=== PATIENT | male | born 1955 | race Caucasian/White ===

== ENCOUNTER 2018-04-15 01:25 | Inpatient (IN) | payer OTHER ==
[~2018-04-15] VITALS: Ht 182.9 cm; Wt 99.8 kg
[~2018-04-15 01:25] MED LIST: BACLOFEN10 M1 PO; CYMBALTA60 M1 PO; DURAGESIC25 MCG TOP; FISH OIL CONC1000 MG PO; LEXAPRO 5MG5 MG PO; MOTRIN 400MG (400 MG PO; MULTIVITAMIN1 TAB PO; NEURONTIN800 M2 PO; NEXIUM40 M1 PO; OXYCODONE HCL30 M1 PO; OXYCODONE HYDRO10 M1 PO; OXYCODONE5 MG PO; OXYCONTIN30 M1 PO; PERCOCET 325 MG1 TA2 PO; PRED FORTE1 ML OD; VALIUM 10 MG. T10 MG PO; XANAX 0.25MG0.25 MG PO; XANAX0.25 M1 PO; Z PACK PO
[2018-04-15 11:10] LABS: PTT 28 SEC (25-37)
--- NOTE | 2018-04-15 12:00 | Operative Report ---
Operative/Inv Procedure Report Surgery Date: 04/15/18 Name of Procedure: Exposure prior instrumentation removal of prior fusion. L2-3 laminectomy for resection of bilateral synovial cysts. L2-3 TLIF. Insertion of L2-3 11 x 28 mm interbody titanium cage. L2-3 posterolateral arthrodesis utilizing autologous bone graft. L2-3 posterior lateral Pankaj titanium instrumentation. Stereotactic. Pre-Operative Diagnosis: Lumbar degenerative disc disease lumbar stenosis synovial cyst Post-Operative Diagnosis: Same Estimated Blood Loss: 750cc Surgeon/Tuberculosis Specialist: Domingo Fonseca MD and Dedra German MD Anesthesia: general endotracheal tube Monitors: Electrophysiological monitoring throughout the case Specimens: Synovial cyst Complications: None Condition: Recovery room Operative/Procedure Note Note: Patient was brought to the operating room and undergoing endotracheal intubation for catheterizations and a placed over both lower extremities. The patient was palpated placed prone on an OSI table back was kept flat all bony prominences well-padded. The procedure was performed under elective physiological monitoring with the technicians room throughout the case. The back was prepped with DuraPrep solution draped in usual sterile fashion. Incision was opened along the previous incision site in the midline and developed superiorly and additional 3 inches. Subcutaneous teeniest tissues were then released and the paraspinal muscles were mobilized out laterally to the level of the transverse processes of L2 and then the vision was identified. At this point the posterolateral fusion was found to be solid and thus the of the prior fusion could then be removed. It was accomplished by cutting the rods just superior to the L4 screws with a cutting bur. The rods were now removed and the polyaxial screws were backed out at L3 bilaterally. The lateral fusion mass was now identified and then prepped for future arthrodesis to L2. A bone scalpel was now utilized to remove bilateral pars osteotomies and laminectomy at L2 on the portion of L3. Synovial cyst was encountered on both sides and sent off for pathology. Furthermore complete foraminotomies were performed bilaterally and all soft tissues were cleared including the superior portion of the L3 lamina. After clearing the dura circumferentially as well as the nerve roots attention was now turned toward the interbody L2-3 disc. Disc space was entered with 11 blade and then removed combination of vertical rongeurs and straight and curved curettes. The cartilaginous endplates removed and the bony endplates were partially decorticated. Bone graft that was harvested from the patient's lamina was now morcellized and ready for the arthrodesis. The L2-3 space was packed with morcellized autologous bone graft and then the center of pain 11 x 28 mm titanium cage was centrally filled with autologous bone graft. Cage was tapped toward the midline at the L2-3 space and countersunk. The transverse processes of L2 and the lateral fusion mass of L3 4 5 were now posterior were decorticated and morcellized autologous bone graft was packed over the decorticated surfaces posterolaterally. V toss was used posterolaterally as well to be packed on top of the morcellized bone. The stereotactic coordinates were now obtained and under stereotactic guidance the pedicles at L2 and L3 were no accessed with Pankaj titanium instrumentation. 55 mm x 6.5 mm diameter screws were utilized at L2 and 45 x 7.5 mm diameter screws were utilized on the left at L3 and 50 x 7.5 mm diameter screws on the right at L3. Screws were now stimulated and found to stimulate all well above the threshold level threshold stimulation was 28 mA. The wound was copiously irrigated with a trace and irrigation throughout the case. A round drain was now placed and removed through separate stab incision and secured to the skin superiorly. The paraspinal muscles and fascia were reapproximated utilizing interrupted 0 Vicryls inverted 2-0 Vicryl subcutaneous tissues and mary for the skin. Patient was extubated and taken to recovery room having tolerated procedure well.
--- NOTE | 2018-04-15 12:04 | Operative Report ---
Operative/Inv Procedure Report Surgery Date: 04/15/18 Name of Procedure: 1. Exploration of prior L3-5 fusion 2. Removal of prior instrumentation 3. Bilateral L2 pars osteotomies 4. L2-3 TLIF with Monroe titanium interbody cage, autograft 5. Nonsegmental L2-3 posterior lateral arthrodesis with Pankaj Obrien pedicle screws and rods, autograft, V toss 6. O arm neuro navigation 7. Resection of bilateral L2-3 synovial cysts Pre-Operative Diagnosis: Progressive L2-3 retrolisthesis with moderately severe canal stenosis, severe bilateral foraminal stenosis status post L3-L5 arthrodesis Post-Operative Diagnosis: Same Estimated Blood Loss: scant (1200cc) Surgeon/Warp Dresser: Monserrat PORTER,Domingo Shu MD Anesthesia: general endotracheal tube Monitors: Neurophysiologic monitoring IV Fluids: 2 L crystalloid, 540 mL Cell Saver Implants: Monroe titanium interbody cage, Obrien pedicle screws and rods Urine Output: 300 mL via Mortensen Drains: Medium Hemovac Specimens: L2-3 disc material, bilateral L2-3 synovial cysts Complications: None Condition: Stable Operative Indication: Patient is a 62-year-old gentleman status post a prior work injury and L3 to L5 decompression with arthrodesis who presents with recurrent and progressive back pain with bilateral lower extremity radiculopathy. Imaging studies have identified a progressive L2-3 retrolisthesis and increasing spinal stenosis at the adjacent level above the previous arthrodesis. He is felt a competent course of conservative treatment and now presents for exploration of the prior fusion, extension of the decompression and instrumented fusion to the L2-3 segment. Operative/Procedure Note Note: Patient was taken the operating room. After appropriate patient identification and surgical timeout, patient underwent the smooth induction of general endotracheal anesthesia without incident. Once endotracheal tube was secured in position a Mortensen catheter was sterilely inserted. DVT prophylaxis was utilized throughout the case. Neurophysiologic monitoring leads were placed and baseline recordings were obtained. Patient was carefully turned to the prone position on the Anthony frame taking care to ensure that all pressure points were well- padded. He was given 1 g of IV Vanco on preoperative prophylaxis. The lumbar spine was strip shaved in widely prepped and draped usual sterile fashion using povidone iodine solution. The previous vertical midline skin incision was marked and infiltrated with local anesthetic and extended rostrally a several centimeters. Skin incision was made with a 10 blade knife. Dissection was carried down through subcutaneous tissue with the Bovie to the lumbodorsal fascia. The fascia was incised in midline and a subperiosteal dissection lumbar paravertebral muscles was performed bilaterally exposing the spinous processes lamina and facet joints. We exposed at the a previous fusion construct and instrumentation. We explored to the prior posterior lateral arthrodesis bilaterally which was noted to be a quite solid abundant bone graft fully consolidated on both sides. We removed the previous locking caps of the L3 screws. Using a metal cutting bur, another stuart was divided between at the prior L3 and L4 pedicle screws and the rostral piece of the stuart was removed off to the back table. The pedicle screws of L3 were then removed bilaterally and the sizes marked. Bilateral transverse processes of L2 and L3 were exposed bilaterally decorticated with a high-speed drill. The lateral gutters were then packed off with Ray-Rock's. The then focused our attention to the joint of L2-3. The facets were noted to be markedly hypertrophic on both sides. We defined the rostral limits of the prior decompression. I using the bone scalpel, a bilateral pars osteotomy of L2 were performed. The inferior articulating facets removed and then the facetectomies completed using combination of Leksell rongeur and Kerrison unsure skeletonizing the pedicles of L2 and L3 bilaterally. Fair amount of previous superficial and interlaminar scar was removed bilaterally. Bilateral synovial cysts were encountered off the L2-3 facet tumor carefully resected with Kerrison rongeurs and passed off as specimen. The omentum flava Mall was elevated and stripped throughout the decompression. Generous foraminotomies of the L2 and L3 roots were performed on both sides allowing an excellent decompression of both the thecal sac and the roots. We then focused our attention to the interbody arthrodesis of L2-3. Working from the left side of the disc space, thecal sac was gently mobilized to the midline exposing the underlying disc annulus. A cuff of overlying venous epidural tissue was coagulated and carefully divided. An annulotomy was made with an 11 blade knife and discectomy at L2-3 performed with disc space judd and rasps until all the disc material and cartilaginous endplates were removed. The endplates were further prepared with the disc curettes. Once the discectomy was completed, the disc space was irrigated. Morcellated autograft from the decompression was packed into the anterior aspect of the disc space. After appropriate trials an 11 x 18 8 x 6 lordotic Monroe trachea and cage was selected. This was filled with morcellated autograft and, with the neural elements protected, gently tamped into the L2-3 interspace and countersunk. Once the cage was in position, we packed morcellated autograft of bilaterally over the transverse processes from L2 to L3 bilaterally. This was further compressed with 2.5 mL of V toss on both sides. At this point, fair amount of general oozing was noted from all of the muscles, subcutaneous tissue, and from the epidural space. The bipolar was used on visualized up liters. FloSeal and thrombin soaked Gelfoam patties were used in the epidural space. Patient was given 11 g of TXA to help with the bleeding which we were able to get under good control. We Placed the O arm reference arc into the right iliac crest through separate stab incision. The O arm was then brought into play. Reference AP and lateral x-rays followed by spin of the O arm were acquired. Reconstructions were performed and verified. Using O arm navigation, we then placed pedicle screws at L2 bilaterally. Entry points were marked at the junction of the pars, transverse process and inferior aspect of the rostral facet. The pedicles were traversed with a gearshift, sounded with a ball-tipped probe, tapped, and screws placed. At L2, 6.5 x 55 mm screws were placed bilaterally. At L3, prior screws were 6.5 x 45 mm. We replaced a 7.5 x 45 mm screw on the left and a 7.5 x 50 mm screw on the right based off the Intra-Op CT. I'll once all screws were in position it was stimulated with thresholds greater than 30 mA at all 4 locations. With all the screws and instrumentation in position, the O arm was brought back into play and a second spin was obtained. We reviewed the reformats which confirmed excellent position of the interbody cage, reduction of the spondylolisthesis, excellent decompression of the neural elements, an excellent position of all of the pedicle screws. A 50 mm rods were then top loaded into the screws and locking caps placed. Gentle compression was placed across the interspace and the screws were finally tightened with an antitorque device. The wound was copiously irrigated with bacitracin sterile saline irrigation. A medium Hemovac was placed into the wound and brought out through separate stab incision and secured with a 2-0 nylon suture. 1 g of vancomycin powder was placed onto the all of the cut muscle and soft tissue surfaces. We then began wound closure. The deep muscle was reapproximated with interrupted 0 Vicryl suture. The lumbar dorsal fascia was reapproximated interrupted 0 Vicryl suture. Subcutaneous tissue was copiously irrigated and closed in layers with interrupted 2-0 Vicryl suture in subcutaneous tissue and mary in the skin. The was cleaned and dried. Bacitracin and a sterile occlusive dressing was placed. The patient was returned to the supine position, awakened, X made, and taken to PACU in stable condition. He was noted to be moving all 4 extremities at the completion of the case. All sponge, needle, and instrument counts are correct at the completion of procedure 3. Neurophysiologic monitoring was stable throughout the case. Discharge Disposition: PACU
--- NOTE | 2018-04-15 12:09 | RADIOLOGY REPORT ---
EXAMINATION: LUMBAR SPINE CLINICAL INFORMATION: L2-L3 removal of hardware fusion. COMPARISON: X-rays 11/01/2017. TECHNIQUE: Axial CT scans of the lumbar spine were obtained intraoperatively. FINDINGS: On the initial images, the study demonstrates sequelae of instrumented posterior decompression and fusion changes in the mid and lower lumbar spine. There are bilateral pedicular screws at L4 and L5 joined by vertical rods. The lower lumbar spine and upper sacrum not included on the initial images. There is an intervertebral disc device at L2-L3, not seen on the most recent prior images. Intervertebral disc devices are also noted at L3-L4 and L4-L5, demonstrated on prior imaging On the later images there are sequelae of instrumented fusions at L2 and L3; the intervertebral disc device at L2-L3 is unchanged. The later images also demonstrate the L4 and L5 instrumented posterior decompressions and fusions with pedicular screws and intervertebral disc devices at L3-L4 and L4-L5. The lumbosacral alignment appears normal. There are no acute fractures or subluxations. IMPRESSION: 1. Intraoperative images demonstrating posterior decompression and fusions as described above.
--- NOTE | 2018-04-15 14:00 | Admission Core Measures ---
Acute Coronary Syndrome (CM) ACS Core Measures Acute Coronary Syndrome Diagnosis No Congestive Heart Failure (NEW) CHF Core Measures Congestive Heart Failure Diagnosis No Cerebrovascular Accident CVA Core Measures CVA/TIA Diagnosis No Venous Thromboembolism VTE Core Juan Francisco (View Protocol) VTE Risk Factors Surgery No Mechanical VTE Prophylaxis d/t N/A MechProphylax Ordered No VTE Pharm Prophylaxis d/t NA PharmProphylax ordered Problem List As ranked by this Provider includes Assessment & Plan 1. Foraminal stenosis of lumbar region HOME MEDS Home Med List Alprazolam (Xanax) 0.25 MG TABLET 1 TAB PO TID ANXIETY (Reported) Baclofen 10 MG TABLET 1 TAB PO BID MUSCLE SPASM (Reported) Duloxetine HCl (Cymbalta) 60 MG CAPSULE.DR 1 CAP PO DAILY DEPRESSION ( Reported) Esomeprazole (Nexium) 40 MG CAPSULE.DR 1 CAP PO DAILY GI (Reported) Gabapentin (Neurontin) 800 MG TABLET 1 TAB PO TID PAIN (Reported) Oxycodone HCl 30 MG TABLET 1 TAB PO 4XDP PAIN (Reported) Oxycodone HCl (Oxycontin) 30 MG TAB.ER.12H 1 TAB PO BID PAIN (Reported) Prednisolone Acetate (Pred Forte) 1 % DROPS.SUSP 1 GTT OD 4 TIMES/DAY EYE DROP (Reported)
--- NOTE | 2018-04-15 14:06 | Patient Discharge Instructions ---
Discharge Instructions General Discharge Information You were seen/treated for: Lower back pain status post previous L3 through L5 fusion You had these procedures: Removal of L3-L5 instrumentation L2-3 TLIF Watch for these problems: Fever over 100.4 Numbness and tingling in lower extremities Drainage from wound Increased redness and swelling around wound Chest pain or shortness of breath Do not soak the wound: Yes No bath, but you may shower: Yes Other wound care: Daily dry dressing change. Keep incision clean and dry Diet Continue normal diet: Yes Activity Pounds, do NOT lift more than: 5 Other activity limits: No bending or twisting. Brace to be worn when out of bed Acute Coronary Syndrome Inclusion Criteria At DC or during hospital stay patient has or had the following: ACS DIAGNOSIS No Discharge Core Measures Meds if any: Prescribed or Continued at Discharge Meds if any: NOT Prescribed or Continued at Discharge Congestive Heart Failure Inclusion Criteria At DC or during hospital stay patient has or had the following: CHF DIAGNOSIS No Discharge Core Measures Meds if any: Prescribed or Continued at Discharge Meds if any: NOT Prescribed or Continued at Discharge Cerebrovascular accident Inclusion Criteria At DC or during hospital stay patient has or had the following: CVA/TIA Diagnosis No Discharge Core Measures Meds if any: Prescribed or Continued at Discharge Meds if any: NOT Prescribed or Continued at Discharge Venous thromboembolism Inclusion Criteria VTE Diagnosis No VTE Type NONE VTE Confirmed by (Test) NONE Discharge Core Measures - Per Current guidelines, there needs to be overlap - treatment for the first 5 days of Warfarin therapy. - If discharged on Warfarin prior to 5 days of - overlap therapy, the patient will need to be - assessed for post discharge needs including - *Post discharge parental anticoagulation - *Warfarin and/or parental anticoagulation education - *Follow up date to check INR post discharge At least 5 days overlap therapy as Inpatient No Meds if any: Prescribed or Continued at Discharge Note: Overlap Therapy is Warfarin and Anticoagulant Meds if any: NOT Prescribed or Continued at Discharge
--- NOTE | 2018-04-15 14:12 | Surg Short-stay <48hrs Dis Sum ---
Visit Information Visit Dates Admission Date: 04/15/18 Discharge Date: 04/17/2018 Surgical Short Stay DC Summary Admission Diagnosis: Progressive L2-3 retrolisthesis with moderately severe canal stenosis, severe bilateral foraminal stenosis status post L3-L5 arthrodesis Final Diagnosis: Same Procedure(s): Exploration of prior L3-5 fusion, removal of prior instrumentation, bilateral L2 pars osteotomies, L23 TLIF with instrumentation, autograft Nonsegmental L2-3 posterior lateral arthrodesis Resection of bilateral L2-3 synovial cysts Summary/Significant Findings: Patient tolerated the procedure well Postoperatively, his pain was well managed, he was voiding spontaneously, he was ambulating with physical therapy and was cleared for discharge to home Condition at Discharge: Good Discharge Disposition: home health services Discharge instructions provided to patient/family: Yes Post discharge follow-up plan: Patient is to follow-up with Dr. German in 10 days. Patient was given instructions to call her office sooner with any questions or concerns
--- NOTE | 2018-04-15 15:52 | PN- Neurosurgical ---
Subjective Subjective: POC pt in PACU with complaint of 9/10 pain, has dilaudid VENDER. Pt has chronic pain and see pain clinic. Denies paresthesias. NO CP/SOB. NO N/V. chinchilla in place Objective Vital Signs and I&Os VSS, afebrile resp- clear cardiac-RRR abd- soft NT back- dresing with minimal sang drainage. hemovac in place with sang drainage in canister, on suction. no erythema or ecchymosis ext- distal sensory and motor function intact, 2+ DP pulse bilat Current Medications: Current Medications Sig/Deejya Start time Last Medication Dose Route Stop Time Status Admin Acetaminophen 1,000 MG Q6H 04/15 1545 UNVr N/A 1 UNIT IV 04/16 0959 Acetaminophen 1,000 MG Q8H 04/15 1545 CANr IV Acetaminophen 0 .STK-MED ONE 04/15 1542 DC IV Acetaminophen 650 MG Q4P PRN 04/15 1315 AC PO Bisacodyl 10 MG DAILY NEEDED PRN 04/15 1330 AC HI Diazepam 5 MG Q8P PRN 04/15 1330 AC PO Docusate Sodium 100 MG TID 04/15 1400 AC PO Fentanyl Citrate 0 .STK-MED ONE 04/15 0706 DC .ROUTE Heparin Sodium 5,000 UNIT Q8 04/15 1400 AC (Porcine) SC Hydromorphone HCl 0 .STK-MED ONE 04/15 1422 DC .ROUTE Hydromorphone HCl 0 .STK-MED ONE 04/15 1344 DC .ROUTE Hydromorphone HCl 0 .STK-MED ONE 04/15 1257 DC .ROUTE Hydromorphone HCl 0 .STK-MED ONE 04/15 1228 DC .ROUTE Hydromorphone HCl 50 MG Q24H PRN 04/15 1215 AC Sodium Chloride 45 ML IV Hydromorphone HCl 0 .STK-MED ONE 04/15 1212 DC .ROUTE Hydromorphone HCl 0 .STK-MED ONE 04/15 1158 DC .ROUTE Hydromorphone HCl 0 .STK-MED ONE 04/15 0706 DC .ROUTE Ketamine HCl 0 .STK-MED ONE 04/15 0707 DC .ROUTE Ketorolac 0 .STK-MED ONE 04/15 1542 DC Tromethamine .ROUTE Ketorolac 15 MG Q6P PRN 04/15 1315 AC Tromethamine IV Midazolam HCl 0 .STK-MED ONE 04/15 0706 DC .ROUTE Ondansetron HCl 4 MG Q6P PRN 04/15 1315 AC IV Oxycodone/ 2 TAB Q4P PRN 04/15 1315 AC Acetaminophen PO Senna 374 MG AT BEDTIME PRN 04/15 2100 AC PO Sodium Chloride 1,000 ML ONCE ONE 04/15 1330 DC IV 04/16 0929 Sodium Chloride 1,000 ML Q10H 04/15 1330 AC IV 04/16 0929 Tranexamic Acid 0 .STK-MED ONE 04/15 1042 DC IV Trimethobenzamide HCl 200 MG Q6P PRN 04/15 1315 AC IM Vancomycin HCl 1,000 MG Q12 04/15 0000 DC Sodium Chloride 250 ML IV 04/18 2359 Vancomycin HCl 1,000 MG Q12 04/15 0000 AC Sodium Chloride 250 ML IV 04/17 2359 Vancomycin HCl 1,000 MG Q12H 04/15 0000 NR Sodium Chloride 250 ML IV 04/18 2359 Results Last 48 Hours of Labs: Laboratory Tests 04/15 1042 Coagulation PT (9.4 - 12.5 SEC) 15.0 H INR (0.90 - 1.17) 1.37 H APTT (25 - 37 SEC) 28 Assessment/Plan Assessment/Plan 62yo M with chronic pain now SP revision TLIF L2-3 POD0, stable in PACU with complaint of significant back pain despite VENDER. IV tylenol now, can also give toradol if needed Cont VENDER, likely will transition to PO meds tomorrow diet as tolerated IVF overnight PT IS abx to continue until drain is out drain to stay in until output less than 50cc per shift dvt ppx- hsq to start in AM FU AM labs Core Measures Venous Thromboembolism VTE Risk Factors Surgery No Mechanical VTE Prophylaxis d/t N/A MechProphylax Ordered No VTE Pharm Prophylaxis d/t NA PharmProphylax ordered
[2018-04-15 18:30] VITALS: BP 120/72
[2018-04-15 22:24] VITALS: BP 112/60
[2018-04-16 00:30] VITALS: BP 114/70
[2018-04-16 02:30] VITALS: BP 118/70
[2018-04-16 04:30] VITALS: BP 118/72
[2018-04-16 08:00] VITALS: BP 118/70
--- NOTE | 2018-04-16 09:17 | PN- Neurosurgical ---
Subjective Subjective: Main complaint presently is pain. States that with Dpca was able to get initial relief but it did not last. He notes incisional pain as well as shooting pain down anterior aspect of bilateral legs but states that it is similar to preop pain. He denies chest pain, shortness odf breath and difficulty breathing. He denies nausea and vomitting. Is voiding without difficulty. Has ye to ambulate with PT. Objective Vital Signs and I&Os Vital Signs Date Time Temp Pulse Resp B/P B/P Pulse O2 O2 Flow FiO2 Mean Ox Delivery Rate 04/16 0430 98.3 75 20 118/72 97 Room Air 04/16 0230 98.3 73 20 118/70 97 Room Air 04/16 0030 98.4 75 20 114/70 96 Room Air 04/15 2224 98.2 74 20 112/60 96 Room Air 04/15 2020 98 Room Air 04/15 1830 98.9 73 20 120/72 Intake & Output 04/16 1600 04/16 0800 04/16 0000 04/15 1600 04/15 0800 04/15 0000 Intake Total 1100 800 Output Total 810 300 Balance 290 500 Intake, IV 800 400 Intake, Oral 300 400 Output, 10 Drainage Output, Urine 800 300 Patient 220 lb Weight Weight Reported by Patient Measurement Method Physical Exam: General: Alert and oriented x3, no acute distress Cardiac: RRR, s1s2 Pulm: CTA bilaterally, non-labored respiratory effort Abd: Non-tender, non-distended Extremities: Moves all extremities, distal sensation intact. Motor grossly intact, 5/5 in plantar and dorsi flexion. Skin warm and well perfused. Distal pulses palpable. Bilateral calves soft and non-tender. Surgical site: Lumbar. Dressing with old stain, dark, Hemovac in place, holding suction, minimal output overnight, 10 cc. Suction tubing milked, evidence of new drainage n oted. Assessment/Plan Assessment/Plan This is a 62 year old male, POD 1, s/p revision TLIF L2-3, has hemovac. PMH signficant for chronic pain. -DC dpca -DC iv fluids -Pain regimen: 40 oxycontin bid, 30 oxycodone q6, tylenol -Hep sub q -ALPS -Vancomycin until drain dc'd, will continue to monitor output -OOB with PT, brace -Incentive spirometer encouraged Will discuss plan of care with Dr. German Core Measures Venous Thromboembolism VTE Risk Factors Surgery No Mechanical VTE Prophylaxis d/t N/A MechProphylax Ordered No VTE Pharm Prophylaxis d/t NA PharmProphylax ordered
[2018-04-16 15:33] VITALS: BP 110/65
--- NOTE | 2018-04-16 21:28 | Event Note ---
Event Note Event Note: seen at beside for clogged hemovac drain suture anchors removed tubing milked tubing withdrawn to white marker on tubing blood advancement in tubing visualized tubing and dressing anchored with nylon tape will observe dr harper aware
[2018-04-16 22:39] VITALS: BP 120/62
[2018-04-17 02:00] VITALS: BP 124/70
[2018-04-17 06:00] VITALS: BP 120/78
--- NOTE | 2018-04-17 13:42 | PN- Neurosurgical ---
See Addendum Subjective Subjective: PT WALKING WITH WALKER, DENIES PARATHESIAS. COMPLAINS OF BACK PAIN. DENIES CP/SOB/NAUSEA. TOLERATING DIET, VOIDING PT CLEARED BY PT TODAY Objective Vital Signs and I&Os Vital Signs Date Time Temp Pulse Resp B/P B/P Pulse O2 O2 Flow FiO2 Mean Ox Delivery Rate 04/17 0600 98.0 92 20 120/78 99 Room Air 04/17 0200 98.6 92 20 124/70 97 Room Air 04/16 2239 98.1 83 20 120/62 94 Room Air 04/16 1533 97.5 72 18 110/65 97 Room Air Intake & Output 04/17 1600 04/17 0800 04/17 0000 04/16 1600 04/16 0000 Intake Total 100 609 815 3398 800 Output Total 0 0 1300 810 300 Balance 100 200 -400 290 500 Intake, IV 100 800 400 Intake, Oral 100 200 800 300 400 Number 1 Bowel Movements Output, 0 0 10 Drainage Output, Urine 1300 800 300 Patient 220 lb Weight Weight Reported by Patient Measurement Method Physical Exam: GEN- NAD RESP- CLEAR, NONLABORED ABD- ND, NT BACK- DRESSING CHANGED EARLIER TODAY, CLEAN AND DRY. EXT- WARM AND DRY. DISTAL SENORY AND MOTOR FUNCTION INTACT Current Medications: Current Medications Sig/Deejay Start time Last Medication Dose Route Stop Time Status Admin Acetaminophen 650 MG Q4P PRN 04/15 1315 AC 04/17 PO 0554 Baclofen 10 MG TID 04/15 2100 AC 04/17 PO 1311 Bisacodyl 10 MG DAILY NEEDED PRN 04/15 1330 AC 04/17 ID 0844 Diazepam 5 MG Q8P PRN 04/15 1330 AC 04/17 PO 0554 Docusate Sodium 100 MG TID 04/15 1400 AC 04/17 PO 1311 Duloxetine HCl 60 MG DAILY 04/16 0900 AC 04/17 PO 0758 Gabapentin 800 MG TID 04/15 2100 AC 04/17 PO 1311 Heparin Sodium 5,000 UNIT Q8 04/15 1400 AC 04/17 (Porcine) SC 0554 Nicotine 21 MG DAILY 04/156 AC 04/17 TOP 0758 Omeprazole 40 MG DAILY AC 04/16 0700 AC 04/17 PO 0554 Ondansetron HCl 4 MG Q6P PRN 04/15 1315 AC IV Oxycodone HCl 30 MG Q8H 04/17 1600 AC PO Oxycodone HCl 30 MG TID 04/17 0900 DC PO Oxycodone HCl 40 MG Q12 04/16 0900 DC 04/17 PO 0757 Oxycodone HCl 30 MG Q6P PRN 04/16 0800 AC 04/17 PO 1117 Prednisolone 1 GTT Q6 04/15 1849 AC 04/17 OPH 0554 Senna 374 MG AT BEDTIME PRN 04/15 2100 AC PO Simethicone 80 MG Q4P PRN 04/16 2015 CAN PO Simethicone 80 MG Q4P PRN 04/16 1615 AC 04/17 PO 0844 Trimethobenzamide HCl 200 MG Q6P PRN 04/15 1315 AC IM Vancomycin HCl 1,000 MG Q12H 04/15 0000 NR Sodium Chloride 250 ML IV 04/18 2359 Assessment/Plan Assessment/Plan This is a 62 year old male, POD 2, s/p revision TLIF L2-3, hemovac removed erlier this morning. PMH signficant for chronic back pain. -Pain regimen: will increase oxycontin to 30 tid, and keep 30 oxycodone q6, tylenol. -Hep sub q -ALPS -OOB with PT, brace -Incentive spirometer encouraged -plan for DC to home today Plan was discussed with Dr. German and she agrees Core Measures Venous Thromboembolism VTE Risk Factors Surgery No Mechanical VTE Prophylaxis d/t N/A MechProphylax Ordered No VTE Pharm Prophylaxis d/t NA PharmProphylax ordered
[2018-04-17] MEDS ORDERED: OXYCONTIN30 M1 PO (13:51)
== END 2018-04-17 14:41 | DRG 460 ==
LOC: SDA 01:25 → ENRESERV 17:45 → ENTRNSPT 17:55 → EDTRNSPT 18:05 → EDTRNSPTSTS 18:05 → 2NA 18:12 → CMPTRNSPT 18:34 → ENPENDDIS 04-17 14:18 → ENTRNSPT 04-17 14:36 → 2NA 04-17 14:41 → CMPTRNSPT 04-17 14:43
PROVIDERS: Neurological Surgery
PROC: 0SG107J Fusion of 2 or more Lumbar Vertebral Joints with Autologous Tissue Substitute, Posterior Approach, Anterior Column, Open Approach (ICD-10-PCS; principal; 2018-04-15)
PROC: 4A11X4G Monitoring of Peripheral Nervous Electrical Activity, Intraoperative, External Approach (ICD-10-PCS; principal; 2018-04-15)
PROC: 0SG10AJ Fusion of 2 or more Lumbar Vertebral Joints with Interbody Fusion Device, Posterior Approach, Anterior Column, Open Approach (ICD-10-PCS; principal; 2018-04-15)
PROC: 0SB00ZZ Excision of Lumbar Vertebral Joint, Open Approach (ICD-10-PCS; principal; 2018-04-15)
PROC: 0SP00AZ Removal of Interbody Fusion Device from Lumbar Vertebral Joint, Open Approach (ICD-10-PCS; principal; 2018-04-15)
PROC: 0SB20ZZ Excision of Lumbar Vertebral Disc, Open Approach (ICD-10-PCS; principal; 2018-04-15)
DX: M47.26 Other spondylosis with radiculopathy, lumbar region (principal); Z88.0 Allergy status to penicillin; Z98.1 Arthrodesis status; F17.210 Nicotine dependence, cigarettes, uncomplicated
CPT/HCPCS: 2NASP; 36415; 76000; 87086; 97116-GO; 97161-GP; 97530-GO; C1713; C9290; J0131; J1170; J1644; J2405; J3250; J3370; J7040; Q4118